=== PATIENT | female | born 1985 | race African-American/Black ===

== ENCOUNTER 2016-12-10 14:44 | Emergency (ER) | payer OTHER ==
[~2016-12-10] VITALS: Ht 154.9 cm; Wt 81.7 kg
--- NOTE | ~2016-12-10 | EKG ---
[place] [address] [address] [place] [address] ELECTROCARDIOGRAM REPORT Name: BRIAN FERGUSON Room #: DEP ANTONELLA Ortiz#: [id number] Admission: 12/10/16 Attend Phys: Discharge: 12/10/16 Date of : 83 Report #: [id number] THIS REPORT FOR: //name// [facility] ED Test Date: 2016-12-10 Test Time: 15:18:56 Pat Name: BRIAN FERGUSON Department: Room: Gender: F Manager Data: [id number] : 1985 Requested By: Juan José Reynoso Order Number: [id number] MD: Devin Acevedo Measurements Intervals [place] Rate: 86 P: 51 NV: 188 QRS: 10 QRSD: 82 T: 17 QT: 365 QTc: 437 Interpretive Statements Sinus rhythm LVH by voltage No previous ECG available for comparison Electronically Signed On 12-11-2016 8:33:14 CDT by Devin Acevedo [email or web address] <ELECTRONICALLY SIGNED> By: Devin Acevedo MD, [facility] 12/11/16 0833 1518 1518 Devin Acevedo MD, FAC /EPI
[~2016-12-10 14:44] MED LIST: KEFLEX500 MG PO; NOHOMEMEDICATIONS; PEPCID40 MG PO
[2016-12-10 15:35] LABS: ABSOLUTE NEUTROPHILS 6.3 thou/uL (1.4-8.2); BASOPHILS 0.9 % (0.0-2.0); EOSINOPHILS 0.6 % (0.0-3.0); HEMATOCRIT 42.6 % (37.0-47.0); HEMOGLOBIN 14.8 gm/dL (12.0-15.0); LYMPHOCYTES 30.6 % (24.0-44.0); MCH 30.3 pg (26.0-34.0); MCHC 34.7 g/dL (28.0-37.0); MCV 87.5 fL (80.0-100.0); MONOCYTES 5.5 % (1.0-8.0); PLATELET COUNT 324 thou/uL (150-400); POLYS 62.4 % (36.0-66.0); RBC 4.87 mil/uL (4.20-5.00); RDW 13.1 % (10.5-14.5)
[2016-12-10 15:36] LABS: MANUAL DIFF NO
[2016-12-10 15:48] LABS: ANION GAP 7 mmol/L (7-16); BUN 10 mg/dL (7-18); CALCIUM 9.1 mg/dL (8.5-10.1); CHLORIDE 103 mmol/L (98-107); CO2 27 mmol/L (21-32); GLUCOSE 103 mg/dL (74-106); SODIUM 137 mmol/L (136-145)
[2016-12-10 15:56] LABS: TROPONIN-I < 0.04 ng/mL (<0.04-0.07)
[2016-12-10] MEDS ORDERED: NORVASC5 MG PO (16:11)
[2016-12-10 17:04] VITALS: BP 159/100
== END 2016-12-10 17:05 | disposition home or self-care (01) ==
LOC: ER 14:44
PROVIDERS: Emergency Medicine
DX: I10 Essential (primary) hypertension (principal); J45.909 Unspecified asthma, uncomplicated; Z88.1 Allergy status to other antibiotic agents; Z88.6 Allergy status to analgesic agent

== ENCOUNTER 2017-07-05 13:33 | Emergency (ER) | payer OTHER ==
[~2017-07-05] VITALS: Ht 157.5 cm; Wt 80.3 kg
[~2017-07-05 13:33] MED LIST changes: +NORVASC5 MG PO
[2017-07-05] MEDS ORDERED: CLEOCIN HCL150 MG PO (14:12)
[2017-07-05] MEDS ORDERED: HYDROCODONE-AP1 EAC6 PO (14:12)
== END 2017-07-05 14:24 | disposition home or self-care (01) ==
LOC: ER 13:33
DX: L03.115 Cellulitis of right lower limb (principal); K02.9 Dental caries, unspecified; I10 Essential (primary) hypertension; J45.909 Unspecified asthma, uncomplicated; Z88.1 Allergy status to other antibiotic agents; Z88.8 Allergy status to other drugs, medicaments and biological substances